=== PATIENT | female | born 1970 | race Caucasian/White ===

== ENCOUNTER 2022-07-22 13:53 | Emergency (ER) | payer BC ==
[2022-07-22 15:03] VITALS: BP 148/82; PULSE 98
== END 2022-07-22 18:28 | disposition left against medical advice (07) ==
LOC: MW.ED 13:53
DX: Z53.21 Procedure and treatment not carried out due to patient leaving prior to being seen by health care provider (principal)

== ENCOUNTER 2022-10-01 13:23 | Emergency (ER) | payer BC ==
[2022-10-01 15:25] VITALS: BP 150/100; PULSE 98
== END 2022-10-01 15:19 | disposition home or self-care (01) ==
LOC: MW.ED 13:23
DX: K29.50 Unspecified chronic gastritis without bleeding (principal); F15.11 Other stimulant abuse, in remission; F10.90 Alcohol use, unspecified, uncomplicated; Z72.0 Tobacco use; Z88.5 Allergy status to narcotic agent; Z88.0 Allergy status to penicillin; Z91.018 Allergy to other foods; Z79.899 Other long term (current) drug therapy
CPT/HCPCS: 99283; 99284

== ENCOUNTER 2022-10-24 02:56 | Emergency (ER) | payer BC ==
[2022-10-24] MEDS ORDERED: Phenazopyridine 200 MG Tab PO ONE (03:41)
[2022-10-24] MEDS ORDERED: Nitrofurantoin Monohydrate/Macrocrystalline 100 MG Cap PO ONE (03:41)
[2022-10-24 03:57] VITALS: BP 126/72; PULSE 86
== END 2022-10-24 03:51 | disposition home or self-care (01) ==
LOC: MW.ED 02:56
DX: N39.0 Urinary tract infection, site not specified (principal); Z88.6 Allergy status to analgesic agent; Z88.5 Allergy status to narcotic agent; Z88.0 Allergy status to penicillin; Z91.018 Allergy to other foods; Z79.899 Other long term (current) drug therapy
CPT/HCPCS: 81001; 87086; 87088; 87186; 99283; A9270

== ENCOUNTER 2023-11-20 09:56 | Emergency (ER) | payer BC ==
[2023-11-20 10:34] VITALS: BP 134/58; PULSE 104
== END 2023-11-20 10:33 | disposition home or self-care (01) ==
LOC: MW.ED 09:56
DX: J45.909 Unspecified asthma, uncomplicated (principal); Z76.0 Encounter for issue of repeat prescription; I10 Essential (primary) hypertension; F17.210 Nicotine dependence, cigarettes, uncomplicated; Z75.8 Other problems related to medical facilities and other health care; Z88.6 Allergy status to analgesic agent; Z88.5 Allergy status to narcotic agent; Z88.0 Allergy status to penicillin; Z91.018 Allergy to other foods; Z79.899 Other long term (current) drug therapy
CPT/HCPCS: 99283